=== PATIENT | male | born 1995 | race Caucasian/White ===

== ENCOUNTER 2022-02-21 22:39 | Emergency (ER) | payer MEDICAID, OTHER ==
[2022-02-21 22:53] VITALS: TEMP 98.8
[2022-02-21] MEDS ORDERED: SODIUM CHLORIDE 0.9% 1,000 ML IV STA (23:18)
[2022-02-21 23:45] LABS: Basophils % (A) 0 %; Eosinophils # (A) 0.1 k/uL (0-0.7); Eosinophils % (A) 1 %; HCT 40.3 % (39.0-53.0); HGB 13.7 gm/dL (13.0-17.5); Lymphocytes # (A) 1.3 k/uL (1.0-4.8); Lymphocytes % (A) 10 %; MCHC 33.9 g/dL (31.0-37.0); MCV 88.3 fL (80.0-100.0); Mean Platelet Volume 8.9; Monocytes # (A) 0.8 k/uL (0-1.0); Monocytes % (A) 6 %; Neutrophils # (A) 10.7 k/uL (1.3-7.7); Neutrophils % (A) 82 %; Platelet Count 228 k/uL (150-450); RBC 4.56 m/uL (4.30-5.90); RDW 12.7 % (11.5-15.5); WBC 13.1 k/uL (3.8-10.6)
[2022-02-22 00:04] LABS: ALT 16 U/L (4-49); AST 26 U/L (17-59); Acetaminophen <10.0 ug/mL; African American GFR (CKD) >90 (>60 ml/min/1.73 sqM); Albumin 4.8 g/dL (3.5-5.0); Alcohol <10 mg/dL; Alkaline Phosphatase 73 U/L (38-126); Anion Gap 13 mmol/L; Blood Urea Nitrogen 13 mg/dL (9-20); Calcium 9.4 mg/dL (8.4-10.2); Carbon Dioxide 22 mmol/L (22-30); Chloride 102 mmol/L (98-107); Glucose 107 mg/dL (74-99); Non-African American GFR(CKD) >90 (>60 ml/min/1.73 sqM); Potassium 4.2 mmol/L (3.5-5.1); Salicylate <1.0 mg/dL; Sodium 137 mmol/L (137-145); Total Bilirubin 0.4 mg/dL (0.2-1.3); Total Protein 7.2 g/dL (6.3-8.2)
--- NOTE | 2022-02-22 03:49 | ED ---
General Adult HPI <Royer Hassan - Last Filed: 02/22/22 14:12> - General Source: EMS Mode of arrival: EMS Limitations: no limitations <Kristen Jones - Last Filed: 02/23/22 23:37> - General Chief complaint: Overdose Stated complaint: Overdose Time Seen by Provider: 02/21/22 22:45 - History of Present Illness Initial comments: 26-year-old male with past medical history of polysubstance abuse presents to the emergency department from [facility]. He reports that he had been there for a week. States that he was getting anxious and left. They did dispense his medications upon leaving. He reports that he was walking down the street when he took 7 of his 300 mg gabapentin. States that he did this in an attempt to harm himself. He was hospitalized at [facility] just prior to [facility] for depression. Patient denies homicidal ideations. No visual or auditory hallucinations. He did take his regularly prescribed Suboxone this morning. Denies taking any other medications in excess. No alcohol use. No other alleviating, precipitating or modifying factors (Kristen Jones) - Related Data Home Medications Medication Instructions Recorded Confirmed Buprenorphine HCl/Naloxone HCl 1 film SL BID 02/22/22 02/22/22 [Suboxone 2 mg-0.5 mg Sl Film] Gabapentin [Neurontin] 300 mg PO BID 02/22/22 02/22/22 LORazepam [Ativan] 1 mg PO BID 02/22/22 02/22/22 OLANZapine [ZyPREXA] 10 mg PO HS 02/22/22 02/22/22 buPROPion XL [Wellbutrin XL] 300 mg PO DAILY 02/22/22 02/22/22 busPIRone HCl [Buspar] 10 mg PO BID 02/22/22 02/22/22 Allergies Allergy/AdvReac Type Severity Reaction Status Date / Time No Known Allergies Allergy Verified 02/22/22 10:56 Review of Systems ROS Other: All systems not noted in ROS Statement are negative. <Royer Hassan - Last Filed: 02/22/22 14:12> ROS Other: All systems not noted in ROS Statement are negative. <Kristen Jones - Last Filed: 02/23/22 23:37> ROS Statement: Those systems with pertinent positive or pertinent negative responses have been documented in the HPI. Past Medical History Additional Past Medical History / Comment(s): Migraines History of Any Multi-Drug Resistant Organisms: None Reported Additional Past Surgical History / Comment(s): Surgery on left knee Past Psychological History: Anxiety, Depression Smoking Status: Current every day smoker Past Alcohol Use History: None Reported Past Drug Use History: Cocaine, Marijuana, Opiates, Prescription Drug Abuse <Kristen Jones - Last Filed: 02/23/22 23:37> General Exam Limitations: no limitations General appearance: alert, anxious, other (twitching) Head exam: Present: atraumatic, normocephalic, normal inspection Eye exam: Present: normal appearance, PERRL, EOMI. Absent: scleral icterus, conjunctival injection, periorbital swelling ENT exam: Present: normal exam, mucous membranes moist Neck exam: Present: normal inspection. Absent: tenderness, meningismus, lymphadenopathy Respiratory exam: Present: normal lung sounds bilaterally. Absent: respiratory distress, wheezes, rales, rhonchi, stridor Cardiovascular Exam: Present: regular rate, normal rhythm, normal heart sounds. Absent: systolic murmur, diastolic murmur, rubs, gallop, clicks GI/Abdominal exam: Present: soft, normal bowel sounds. Absent: distended, tenderness, guarding, rebound, rigid Extremities exam: Present: normal inspection, full ROM, normal capillary refill. Absent: tenderness, pedal edema, joint swelling, calf tenderness Back exam: Present: normal inspection Neurological exam: Present: alert, CN II-XII intact Psychiatric exam: Present: normal affect, depressed Skin exam: Present: warm, dry, intact, normal color. Absent: rash <Kristen Jones - Last Filed: 02/23/22 23:37> Course Vital Signs 02/21/22 02/21/22 02/21/22 22:40 22:54 23:53 Temperature 98.8 F 98.8 F Pulse Rate 105 H 110 H 94 Respiratory 18 18 16 Rate Blood Pressure 132/95 132/95 120/82 O2 Sat by Pulse 96 96 96 Oximetry 02/22/22 02/22/22 02/22/22 00:07 01:02 02:33 Temperature Pulse Rate 92 92 88 Respiratory 16 16 Rate Blood Pressure 117/82 108/74 111/76 O2 Sat by Pulse 99 99 98 Oximetry 02/22/22 02/22/22 02/22/22 03:18 04:25 08:38 Temperature Pulse Rate 89 81 90 Respiratory 16 16 17 Rate Blood Pressure 107/72 108/71 105/72 O2 Sat by Pulse 98 99 96 Oximetry 02/22/22 02/22/22 10:03 14:54 Temperature Pulse Rate 71 75 Respiratory 16 16 Rate Blood Pressure 98/68 132/81 O2 Sat by Pulse 96 100 Oximetry EKG Findings - EKG Comments: EKG Findings:: EKG demonstrates sinus tach with a rate of 109. OK interval 182. QRS 96. QTC of 374. No acute ST segment elevations or depressions <Kristen Jones - Last Filed: 02/23/22 23:37> Medical Decision Making - Lab Data Result diagrams: 02/21/22 23:23 02/21/22 23:23 <Royer Hassan - Last Filed: 02/22/22 14:12> - Lab Data Result diagrams: 02/21/22 23:23 02/21/22 23:23 <Kristen Jones - Last Filed: 02/23/22 23:37> - Medical Decision Making Patient was signed out to me pending psychiatric evaluation. Patient was medically cleared by the prior emergency department physician. He plans to kill himself last night. Was cleared by the EPS initially but after speaking to the psychiatrist, would like him to evaluate the patient personally. Patient was therefore pending psychiatric evaluation. Psychiatrist Dr. iDllon evaluate the patient and deemed he was stable for discharge home. He cleared the patient for discharge. I was notified by nursing at the psychiatrist cleared the patient. I did repeat his no. Patient will be discharged home at this time. I will provide him with resources for outpatient follow-up. He is discharged home in good condition. (Royer Hassan) On arrival patient was placed into room 1. Thorough history and physical exam was performed. IV access is established. Laboratory studies were conducted. Twelve-lead EKG is performed. Patient is placed on continuous pulse ox and cardiac monitoring. Laboratory studies are reviewed. Mild white count 13.1. We did call poison control who recommends 6 hours of observation. Patient is observed until 4:30 AM where he is medically clear. Patient evaluated by EPS. Original decision is that the patient does not meet criteria. I then spoke with Dr. Wilson who will evaluate the pt in the ED himself. (Kristen Jones) - Lab Data Lab Results 02/21/22 02/21/22 02/22/22 Range/Units 23:23 23:23 06:08 WBC 13.1 H (3.8-10.6) k/uL RBC 4.56 (4.30-5.90) m/uL Hgb 13.7 (13.0-17.5) gm/dL Hct 40.3 (39.0-53.0) % MCV 88.3 (80.0-100.0) fL MCH 30.0 (25.0-35.0) pg MCHC 33.9 (31.0-37.0) g/dL RDW 12.7 (11.5-15.5) % Plt Count 228 (150-450) k/uL MPV 8.9 Neutrophils % 82 % Lymphocytes % 10 % Monocytes % 6 % Eosinophils % 1 % Basophils % 0 % Neutrophils # 10.7 H (1.3-7.7) k/uL Lymphocytes # 1.3 (1.0-4.8) k/uL Monocytes # 0.8 (0-1.0) k/uL Eosinophils # 0.1 (0-0.7) k/uL Basophils # 0.0 (0-0.2) k/uL Sodium 137 (137-145) mmol/L Potassium 4.2 (3.5-5.1) mmol/L Chloride 102 (98-107) mmol/L Carbon Dioxide 22 (22-30) mmol/L Anion Gap 13 mmol/L BUN 13 (9-20) mg/dL Creatinine 1.11 (0.66-1.25) mg/dL Est GFR (CKD-EPI)AfAm >90 (>60 ml/min/1.73 sqM) Est GFR (CKD-EPI)NonAf >90 (>60 ml/min/1.73 sqM) Glucose 107 H (74-99) mg/dL Calcium 9.4 (8.4-10.2) mg/dL Total Bilirubin 0.4 (0.2-1.3) mg/dL AST 26 (17-59) U/L ALT 16 (4-49) U/L Alkaline Phosphatase 73 (38-126) U/L Total Protein 7.2 (6.3-8.2) g/dL Albumin 4.8 (3.5-5.0) g/dL Urine Color Urine Appearance (Clear) Urine pH (5.0-8.0) Ur Specific [place] (1.001-1.035) Urine Protein (Negative) Urine Glucose (UA) (Negative) Urine Ketones (Negative) Urine Blood (Negative) Urine Nitrite (Negative) Urine Bilirubin (Negative) Urine Urobilinogen (<2.0) mg/dL Ur Leukocyte Esterase (Negative) Urine RBC (0-5) /hpf Urine WBC (0-5) /hpf Hyaline Casts (0-2) /lpf Urine Mucus (None) /hpf Salicylates <1.0 mg/dL Urine Opiates Screen Not Detected (NotDetected) Ur Oxycodone Screen Not Detected (NotDetected) Urine Methadone Screen Not Detected (NotDetected) Ur Propoxyphene Screen Not Detected (NotDetected) Acetaminophen <10.0 ug/mL Ur Barbiturates Screen Not Detected (NotDetected) U Tricyclic Antidepress Not Detected (NotDetected) Ur Phencyclidine Scrn Not Detected (NotDetected) Ur Amphetamines Screen Not Detected (NotDetected) U Methamphetamines Scrn Not Detected (NotDetected) U Benzodiazepines Scrn Not Detected (NotDetected) Urine Cocaine Screen Not Detected (NotDetected) U Marijuana (THC) Screen Not Detected (NotDetected) Serum Alcohol <10 mg/dL Coronavirus (PCR) (Not Detectd) 02/22/22 02/22/22 Range/Units 06:08 06:08 WBC (3.8-10.6) k/uL RBC (4.30-5.90) m/uL Hgb (13.0-17.5) gm/dL Hct (39.0-53.0) % MCV (80.0-100.0) fL MCH (25.0-35.0) pg MCHC (31.0-37.0) g/dL RDW (11.5-15.5) % Plt Count (150-450) k/uL MPV Neutrophils % % Lymphocytes % % Monocytes % % Eosinophils % % Basophils % % Neutrophils # (1.3-7.7) k/uL Lymphocytes # (1.0-4.8) k/uL Monocytes # (0-1.0) k/uL Eosinophils # (0-0.7) k/uL Basophils # (0-0.2) k/uL Sodium (137-145) mmol/L Potassium (3.5-5.1) mmol/L Chloride (98-107) mmol/L Carbon Dioxide (22-30) mmol/L Anion Gap mmol/L BUN (9-20) mg/dL Creatinine (0.66-1.25) mg/dL Est GFR (CKD-EPI)AfAm (>60 ml/min/1.73 sqM) Est GFR (CKD-EPI)NonAf (>60 ml/min/1.73 sqM) Glucose (74-99) mg/dL Calcium (8.4-10.2) mg/dL Total Bilirubin (0.2-1.3) mg/dL AST (17-59) U/L ALT (4-49) U/L Alkaline Phosphatase (38-126) U/L Total Protein (6.3-8.2) g/dL Albumin (3.5-5.0) g/dL Urine Color Yellow Urine Appearance Cloudy (Clear) Urine pH 6.0 (5.0-8.0) Ur Specific [place] 1.020 (1.001-1.035) Urine Protein Trace H (Negative) Urine Glucose (UA) Negative (Negative) Urine Ketones Negative (Negative) Urine Blood Negative (Negative) Urine Nitrite Negative (Negative) Urine Bilirubin Negative (Negative) Urine Urobilinogen <2.0 (<2.0) mg/dL Ur Leukocyte Esterase Negative (Negative) Urine RBC 3 (0-5) /hpf Urine WBC 8 H (0-5) /hpf Hyaline Casts 6 H (0-2) /lpf Urine Mucus Many H (None) /hpf Salicylates mg/dL Urine Opiates Screen (NotDetected) Ur Oxycodone Screen (NotDetected) Urine Methadone Screen (NotDetected) Ur Propoxyphene Screen (NotDetected) Acetaminophen ug/mL Ur Barbiturates Screen (NotDetected) U Tricyclic Antidepress (NotDetected) Ur Phencyclidine Scrn (NotDetected) Ur Amphetamines Screen (NotDetected) U Methamphetamines Scrn (NotDetected) U Benzodiazepines Scrn (NotDetected) Urine Cocaine Screen (NotDetected) U Marijuana (THC) Screen (NotDetected) Serum Alcohol mg/dL Coronavirus (PCR) Not Detected (Not Detectd) Disposition Is patient prescribed a controlled substance at d/c from ED?: No Time of Disposition: 13:20 <Royer Hassan - Last Filed: 02/22/22 14:12> <Kristen Jones - Last Filed: 02/23/22 23:37> Clinical Impression: Encounter for psychiatric assessment Disposition: HOME SELF-CARE Condition: Good Additional Instructions: follow safety plan. return if worse symptoms. Referrals: None,Stated [Primary Care Provider] - 1-2 days
[2022-02-22 06:29] LABS: Appearance,Urine Cloudy (Clear); Bilirubin,Urine Negative (Negative); Blood,Urine Negative (Negative); Color,Urine Yellow; Glucose,Urine (UA) Negative (Negative); Hyaline Casts,Urine 6 /lpf (0-2); Ketones,Urine Negative (Negative); Leukocyte Esterase,Urine Negative (Negative); Mucus,Urine Many /hpf; Nitrite,Urine Negative (Negative); Protein,Urine Trace (Negative); RBC,Urine 3 /hpf (0-5); Urobilinogen,Urine <2.0 mg/dL (<2.0); WBC,Urine 8 /hpf (0-5)
[2022-02-22 06:33] LABS: Amphetamine Screen,Urine Not Detected (NotDetected); Barbiturate Screen,Urine Not Detected (NotDetected); Benzodiazepines Screen,Urine Not Detected (NotDetected); Cocaine Screen,Urine Not Detected (NotDetected); Methadone Screen, Urine Not Detected (NotDetected); Opiate Screen,Urine Not Detected (NotDetected); Oxycodone Screen, Urine Not Detected (NotDetected); Phencyclidine Screen,Urine Not Detected (NotDetected); Tricyclic Antidepressant,Urine Not Detected (NotDetected); Urn Cannabinoid Scrn Not Detected (NotDetected)
[2022-02-22 10:03] VITALS: RESP 16
[2022-02-22] MEDS ORDERED: ACETAMINOPHEN TAB 325 MG TAB PO STA (10:16)
[2022-02-22] MEDS ORDERED: SUBOXONE SUBLINGUAL SCH (12:00)
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
[2022-02-22 14:56] VITALS: BP 132/81; PULSE 75
== END 2022-02-22 14:55 | disposition home or self-care (01) ==
LOC: EC 22:39
DX: Z00.8 Encounter for other general examination (principal); F41.9 Anxiety disorder, unspecified; F32.A Depression, unspecified; F12.90 Cannabis use, unspecified, uncomplicated; Z79.899 Other long term (current) drug therapy; Z20.822 Contact with and (suspected) exposure to COVID-19
CPT/HCPCS: 82075; 36415; 93005; 80053; 85025; 81001; 80306; 80143; 87635; 80179; 99284; 96360; G0480; 80320